=== PATIENT | male | born 1995 ===

== ENCOUNTER → 2017-10-14 | Outpatient (CLI) | payer OTHER, MEDICARE, MEDICAID | END | disposition home or self-care (01) | LOC: CFH 12:52 | PROVIDERS: ATTEND Nurse Practitioner Pediatrics, Critical Care | DX: Z13.820 Encounter for screening for osteoporosis (principal); Q98.4 Klinefelter syndrome, unspecified | CPT/HCPCS: 77080 ==

== ENCOUNTER 2018-09-22 22:18 | Emergency (ER) | payer OTHER, MEDICARE, MEDICAID ==
[~2018-09-22] VITALS: Ht 193 cm; Wt 152.1 kg
[2018-09-22 22:29] VITALS: BP 157/99
== END 2018-09-23 00:31 ==
LOC: ED 09-23 00:27
DX: H10.021 Other mucopurulent conjunctivitis, right eye (principal); H57.11 Ocular pain, right eye
CPT/HCPCS: 99283